=== PATIENT | female | born 1995 | race Caucasian/White ===

== ENCOUNTER 2019-05-27 07:41 | Day surgery (SDC) | payer OTHER ==
[~2019-05-27] VITALS: Ht 162.6 cm; Wt 59.9 kg
[2019-05-27] MEDS ORDERED: NEXP1IMP SC (08:07)
[2019-05-27] MEDS ORDERED: ONDANSETRON 4MG/2ML VIAL (J2405) IV ONE (08:45)
[2019-05-27] MEDS ORDERED: MORPHINE 4 MG/ML 1ML VIAL/SYRINGE (J2270) IV ONE (08:45)
[2019-05-27] MEDS ORDERED: NS 1,000 ML IV ONE (09:00)
--- NOTE | 2019-05-27 09:21 | REP ---
Clinical: Trauma. Fall. Technique: AP, lateral, bilateral oblique views of the left wrist. Findings: There is a comminuted displaced Colles' fracture of the distal radial metaphysis with posterior displacement of the fracture fragments. The carpal bones appear intact. Impression: Comminuted posterior displaced Colles' fracture of the distal radial metaphysis. Electronically Signed by Ari Ngo MD 05/27/2019 08:22 A
[2019-05-27 09:22] LABS: BASO # 0.1 10^3/uL (0.0-0.2); BASO % 0.4 % (0.0-1.0); EOS # 0.2 10^3/uL (0.0-0.5); EOS % 1.4 % (0.0-3.0); HEMATOCRIT 40.6 % (36.0-47.0); HEMOGLOBIN 13.4 g/dl (12.0-15.5); LYMPH # 1.2 10^3/uL (1.5-5.0); LYMPH % 10.5 % (24.0-44.0); MEAN CORPUSCULAR HEMOGLOBIN 29.9 pg (27.0-33.0); MEAN CORPUSCULAR VOLUME 90.6 fl (80.0-96.0); MONO # 0.7 10^3/uL (0.0-0.8); MONO % 5.5 % (0.0-5.0); NEUTROPHILS # 9.6 10^3/uL (1.5-8.5); NEUTROPHILS % 81.8 % (36.0-66.0); PLATELET COUNT, AUTOMATED 268 10^3/uL (150-450); RED BLOOD COUNT 4.48 10^6/uL (4.00-5.40); WHITE BLOOD COUNT 11.8 10^3/uL (4.0-10.0)
[2019-05-27] MEDS ORDERED: KETOROLAC 30 MG/ML VIAL (J1885) IV ONE (09:45)
[2019-05-27] MEDS ORDERED: BUPIVACAINE/EPIN 0.25% 30 ML VIAL As Ordered ONE (15:10)
[2019-05-27] MEDS ORDERED: LIDOCAINE 2% INJ 100 MG/5 ML SDV (FOR ANES.) As Ordered ONE (15:28)
[2019-05-27] MEDS ORDERED: dexameTHASONE 4 MG/ML 1ML VIAL (J1100) As Ordered ONE (15:28)
[2019-05-27] MEDS ORDERED: fentaNYL 250 MCG/5 ML INJECTION (J3010) As Ordered ONE (15:28)
[2019-05-27] MEDS ORDERED: propofoL 200 MG/20 ML VIAL As Ordered ONE ×2 (15:28→15:46)
[2019-05-27] MEDS ORDERED: ONDANSETRON 4MG/2ML VIAL (J2405) As Ordered ONE (15:28)
[2019-05-27] MEDS ORDERED: METOCLOPRAMIDE INJ 10MG/2ML VIAL (J2765) As Ordered ONE (15:28)
[2019-05-27] MEDS ORDERED: MIDAZOLAM INJ 2 MG/2 ML VIAL (J2250) As Ordered ONE (15:28)
[2019-05-27] MEDS ORDERED: ceFAZolin 2 GM/D5W 50 ML IV BAG (J0690 PER 500MG) As Ordered ONE (15:31)
[2019-05-27] MEDS ORDERED: ACETAMINOPHEN 1000MG 100ML IV BTL (OFIRMEV) (J0131 PER 10MG) As Ordered ONE (15:42)
--- NOTE | 2019-05-27 16:56 | REP ---
Wrist series: Six views. History: Right wrist fracture. Intraoperative imaging. 8 seconds of fluoroscopy time is reported. Findings: A sequence of six last image hold fluoroscopically obtained spot radiographs document open reduction internal fixation distal radial fracture. No laterality markers are visible. Electronically Signed by Kavon Hayden MD 05/27/2019 04:47 P
[2019-05-27] MEDS ORDERED: fentaNYL 100 MCG/2 ML INJECTION (J3010) IV PRN (17:00)
[2019-05-27] MEDS ORDERED: ONDANSETRON 4MG/2ML VIAL (J2405) IV PRN (17:00)
[2019-05-27] MEDS ORDERED: LR 1,000 ML IV SCH (17:00)
[2019-05-27] MEDS ORDERED: oxyCODONE 5MG TAB PO PRN ×3 (17:00)
[2019-05-27 18:00] VITALS: BP 121/59
--- NOTE | 2019-05-27 18:29 | HPE ---
DATE OF ADMISSION: 05/27/2019 CHIEF COMPLAINT: Left wrist pain. HISTORY OF PRESENT ILLNESS: The patient states that she was running this morning and had a slip and fall onto an outstretched wrist. She immediately experienced 10/10 sharp pain and deformity to her left wrist. The pain now is near constant at about 6 or 7 out of 10. It is dull, achy pain with intermittent sharp pains that are 10/10 with any sort of movement or pressure. The pain is improved with immobilization and ketorolac. Denies any numbness, tingling, fevers, chills, or pain elsewhere. Denies any fevers, chills, nausea, or vomiting. REVIEW OF SYSTEMS: Complete 10 system review was notable for the pertinent positives and negatives in history of present illness (HPI). All other systems negative. ALLERGIES: No known drug allergies. PAST MEDICAL HISTORY: None. MEDICATIONS: Just Nexplanon. PAST SURGICAL HISTORY: Operative fixation of a broken jaw and her finger in the remote past. SOCIAL HISTORY: The patient is said to be engaged this weekend, is a [employer] member. Denies any smoking and drinks socially. PHYSICAL EXAMINATION: The patient is awake, alert and oriented, well-dressed, appropriate affect, breathing comfortably on room air. Normocephalic, atraumatic. Left upper extremity: Tender to palpation with obvious deformity about the distal radius. Skin is intact. Radial pulse 2+, regular rate. Positive anterior interosseous nerve (AIN), posteriori interosseous nerve (PIN) and ulnar motor nerve function. Sensation intact to light touch in superficial, sensory branch, radial nerve, median and ulnar nerve. No tenderness to palpation about the elbow. Right upper extremity: No tenderness to palpation. Full active range of motion of the fingers, wrist and elbow. Negative provocative testing. Skin is intact. Radial pulse 2+, regular rate. Sensation intact to light touch in superficial, sensory branch, radial nerve, median and ulnar nerve. Positive AIN, PIN and ulnar motor nerve function. IMAGING: Reviewed. Four views of the left wrist demonstrates a comminuted intraarticular distal radius fracture with volar displacement. ASSESSMENT AND PLAN: This is a 23-year-old female who suffered an unstable left distal radius fracture. I discussed with the patient that unfortunately this is an unstable fracture, is more of a shear type. Therefore, I recommend operative intervention given the intraarticular and comminuted and unstable nature of the fracture given the patient's young age and high activity level. She expressed understanding and agreement with the plan. We discussed the risks and benefits including but not limited to infection, damage to surrounding structures, incomplete relief, malunion, nonunion, and she wishes to proceed. She is currently nothing by mouth. Last meal was last night. She had water at 05:45 this morning. Plan to do operative fixation today with hopeful discharge later today if pain is under control. The patient expressed understanding and agreement with that plan.
--- NOTE | 2019-05-31 13:29 | RO ---
DATE OF PROCEDURE: 05/27/2019 PREOPERATIVE DIAGNOSIS: Left comminuted intra-articular distal radius fracture. POSTOPERATIVE DIAGNOSIS: Left comminuted intra-articular distal radius fracture. PROCEDURE: Left open reduction, internal fixation of distal radius fracture. SURGEON: Dr. Wilfred Li BILINGUAL TEACHER AIDE: Mayo Ellington, who was essential for rivas retractions for portions of the procedure. ANESTHESIA: General. INDICATION: This is a 23-year-old female who had a fall on the outstretched hand and suffered a complex unstable comminuted distal radius fracture, intra-articular. We discussed the risks and benefits of operative intervention, including, but not limited to, infection, damage to surrounding structures, incomplete relief, malunion, nonunion, and patient wished to proceed. PREOPERATIVE ANTIBIOTICS: 2 grams of Ancef. COMPLICATIONS: None. TOURNIQUET TIME: 32 minutes. BLOOD LOSS: 10 mL. OPERATIVE DESCRIPTION: Patient was brought back to the operating room (OR) in the supine position. Underwent general anesthesia, at which point the left arm was prepped and draped in the usual fashion. We had time-out confirming site, side, and surgery. We then elevated the tourniquet up to 250 mmHg. We then made a longitudinal incision along flexor carpi radialis (FCR). We incised the superficial portion of the sheath, retracting it radially, then the deep portion, at which point we exposed flexor pollicis longus (FPL) and retraced it ulnarly. We exposed the pronator quadratus, which was damaged from the fracture. We lifted the sheath up as a sheet to expose the fracture. There was significant comminution of the fracture and metaphyseal comminution, at which point we did indirect reduction technique manually and confirmed on AP/lateral films that this was holding reduction, at which point we selected a three-hole variable angle [employer]ynthe[employer] plate and aligned it using a K-wire to check position of the plate on AP and lateral positioning. Once happy, we placed our four distal screws. When this was adequately fixated distally, we then did another indirect reduction technique using the plate to reduce the volar subluxation of the distal fracture, held it in place, and placed three cortical screws to hold it locked in place. We confirmed our alignment on both AP and lateral films. We were very happy with the reduction and fixation, at which point we irrigated the wound thoroughly. Closed subcutaneous tissue with #3-0 Vicryl, skin with #3-0 nylon. Adaptic, gauze, sterile Webril, and placed a volar-based splint and Tyrese, at which point we let down the tourniquet. Patient was awakened from general anesthesia and taken to the postanesthesia care unit (PACU) in stable condition. POSTOPERATIVE PLAN: Patient will work on pain control and range of motion. At 2 weeks, we will do a wound check and remove the sutures and transition her over to a removable brace. Patient expressed understanding and agreement with this ahead of time.
== END 2019-05-27 18:05 | disposition home or self-care (01) ==
LOC: EDBD 07:41 → M ED 07:41 → M SDC 07:42 → EDBEDREQ 15:32 → M SDC 18:05
PROVIDERS: ATTEND Orthopaedic Surgery Hand Surgery
DX: S52.572A Other intraarticular fracture of lower end of left radius, initial encounter for closed fracture (principal); W01.198A Fall on same level from slipping, tripping and stumbling with subsequent striking against other object, initial encounter; Y92.89 Other specified places as the place of occurrence of the external cause; Y93.02 Activity, running; Y99.1 Military activity; Z87.891 Personal history of nicotine dependence
CPT/HCPCS: 25608; 73110; 76000; 80047; 84702; 85025; 96361; 96374; 96375; 99284; C1713; J0131; J0690; J1100; J1885; J2250; J2405; J2765; J3010

== ENCOUNTER → 2020-03-03 | Outpatient (REF) | payer OTHER ==
[~2020-03-03] MED LIST: NEXP1IMP SC
[2020-03-03 22:09] LABS: APPEARANCE, URINE HAZY (CLEAR); BACTERIA, URINE AUTO 1+ (NEGATIVE); BILIRUBIN, URINE AUTO NEGATIVE (NEGATIVE); BLOOD, URINE BLOOD 2+ (NEGATIVE); COLOR, URINE YELLOW (YELLOW); GLUCOSE, URINE (UA) AUTO NEGATIVE (NEGATIVE); KETONE, URINE AUTO NEGATIVE (NEGATIVE); LEUKOCYTE ESTERASE, URINE AUTO 2+ (NEGATIVE); MUCUS, URINE SMALL (NEGATIVE); NITRITE, URINE AUTO NEGATIVE (NEGATIVE); PROTEIN, URINE AUTO 1+ mg/dL (NEGATIVE); RBC, URINE AUTO 30 /HPF (0-3); SPECIFIC GRAVITY URINE AUTO 1.018 (1.002-1.035); SQUAMOUS EPITHELIAL CELL UR AU 1 /HPF (0-6); UROBILINOGEN, URINE AUTO 0.2 mg/dL (0.0-2.0); WBC, URINE AUTO 70 /HPF (0-3)
== END ==
LOC: M LAB REF 21:54
PROVIDERS: ATTEND Physician Assistant
DX: N39.0 Urinary tract infection, site not specified (principal)